=== PATIENT | female | born 1990 | race Caucasian/White ===

== ENCOUNTER 2019-05-30 13:19 | Emergency (ER) | payer MEDICAID, OTHER ==
[~2019-05-30] VITALS: Ht 162.6 cm; Wt 111.6 kg
--- OUTSIDE RECORDS SUMMARY | 2019-05-30 13:27 | XMS REPORT ---
Author Author DESI TAM Organization [employer] Address Unknown Phone Unavailable Care Team Providers Care Sales Mgr Name Role Phone DESI TAM CP Unavailable Allergies, Adverse Reactions, Alerts Substance Reaction Event Type Penicillin G Sodium Info Not Available Drug Allergy Problems Problem Type Condition Code Onset Dates Condition Status Assessment Encounter for dental examination Z01.20 Active Medications No Known Medications Procedures Procedure Coding System Code Date RESIN COMPOS - ONE SURFACE ANTERIOR CPT-4 D2330 Oct 14, 2015 RESIN COMPOS - 2 SURFACES ANTERIOR CPT-4 D2331 Oct 14, 2015 INTRAORL-PERIAPICAL 1 FILM 78792 CPT-4 D0220 Oct 16, 2015 Vital Signs Date/Time: Oct 16, 2015 Blood Pressure Diastolic 73 mmHg Blood Pressure Systolic 113 mmHg Results No Known Results Summary Purpose [employer] Submission
--- OUTSIDE RECORDS SUMMARY | 2019-05-30 13:27 | XMS REPORT ---
Author Author LEW LANG Organization [facility] Address [address] [place] [address] Phone Unavailable Care Team Providers Care Television Station Manager Name Role Phone LEW LANG Unavailable Unavailable PROBLEMS Unknown Problems ALLERGIES Substance Reaction Event Type Date Status Penicillin G Sodium Unknown Drug Allergy Jul, Active ENCOUNTERS Encounter Location Date Diagnosis [facility] [address] [id number] [phone] Jan, Encounter for dental exam and cleaning w/o abnormal findings Z01.20 [facility] [address] [id number], [place] [phone] Dec, Dental examination Z01.20 and Dental caries K02.9 [facility] [place] [address] [id number] [place] [phone] Oct, Dental examination Z01.20 [facility] [address] [id number][place] [phone] Oct, Encounter for dental exam and cleaning w/o abnormal findings Z01.20 [facility] [address] [id number], [place] [phone] Jul, Encounter for dental examination and cleaning with abnormal findings Z01.21 [facility] [address] [id number], [place] [phone] Sep, Encounter for dental examination Z01.20 [facility] [address] [id number], [place] [phone] Jul, Dental examination V72.2 [facility] [address] [id number], [place] [phone] May, Dental examination V72.2 IMMUNIZATIONS No Known Immunizations SOCIAL HISTORY Never Assessed REASON FOR VISIT ADULT OUTREACH [facility] PLAN OF CARE Activity Details Follow Up REMA/, 3 Months Reason:TE #21/ON SITE RECALL VITAL SIGNS MEDICATIONS Medication Instructions Dosage Frequency Start Date End Date Duration Status Ziprasidone HCl 60 MG Orally Twice a day 1 capsule with food 12h Active MiraLax - Orally Once a day 1 packet mixed with 8 ounces of fluid 24h Active Omeprazole 20 MG Orally Once a day 1 capsule 24h Active Acetaminophen 325 MG Orally every 6 hrs 2 tablets as needed 6h Active Cranberry Concentrate 500 MG Active Fluoxetine 20 MG Orally Once a day 1 capsule in the morning 24h Active ibuprofen 1 tab Active Benadryl 50 MG/ML Active Debrox 6.5 % Otic Twice a day 5 drops into affected ear 12h Active Loperamide HCl 2 MG Orally Four times a day 1 tablet as needed 6h Active Ziprasidone HCl 80 MG Orally Twice a day 1 capsule with food 12h Active RESULTS No Results PROCEDURES Procedure Date Ordered Result Body Site PROPHYLAXIS - ADULT Jul 30, 2017 TOPICAL FLUORIDE VARNISH Jul 30, 2017 INSTRUCTIONS MEDICATIONS ADMINISTERED No Known Medications MEDICAL (GENERAL) HISTORY Type Description Date Medical History DEPRESSIVE DISORDER, NEC ANXIETY STATE, NOS RECURRENT UTI .HEARTBURN
--- OUTSIDE RECORDS SUMMARY | 2019-05-30 13:27 | XMS REPORT ---
Author Author RAIZA VALDES [facility] Address [address] [place] [address] Care Team Providers Care Airport Representative Name Role Phone RAIZA VALDES Unavailable PROBLEMS Unknown Problems ALLERGIES Substance Reaction Event Type Date Status Penicillin G Sodium Unknown Drug Allergy Oct, Active ENCOUNTERS Encounter Location Date Diagnosis [facility] [address] [id number], [place] [address] Apr, [facility] [address] [id number] [phone] Apr, [facility] [address] [id number], [place] [phone] Jan, Encounter for dental exam and cleaning w/o abnormal findings Z01.20 [facility] [address] [id number], [place] [phone] Dec, Dental examination Z01.20 and Dental caries K02.9 [facility] [place] [address] [id number] [place] [phone] Oct, Dental examination Z01.20 [facility] [address] [id number], [place] [phone] Oct, Encounter for dental exam and cleaning w/o abnormal findings Z01.20 [facility] [address] [id number], [place] [phone] Jul, Encounter for dental examination and cleaning with abnormal findings Z01.21 [facility] [address] [id number], [place] [phone] Sep, Encounter for dental examination Z01.20 [facility] [address] [id number], [place] [phone] Jul, Dental examination V72.2 [facility] [address] [facility] [id number] [place] [phone] May, Dental examination V72.2 IMMUNIZATIONS No Known Immunizations SOCIAL HISTORY Never Assessed REASON FOR VISIT PLAN OF CARE Activity Details Follow Up REMA Reason:Extraction VITAL SIGNS MEDICATIONS Medication Instructions Dosage Frequency Start Date End Date Duration Status Acetaminophen 325 MG Orally every 6 hrs 2 tablets as needed 6h Active Ziprasidone HCl 80 MG Orally Twice a day 1 capsule with food 12h Active Benadryl 50 MG/ML Active Omeprazole 20 MG Orally Once a day 1 capsule 24h Active Ziprasidone HCl 60 MG Orally Twice a day 1 capsule with food 12h Active Loperamide HCl 2 MG Orally Four times a day 1 tablet as needed 6h Active Cranberry Concentrate 500 MG Active Debrox 6.5 % Otic Twice a day 5 drops into affected ear 12h Active ibuprofen 1 tab Active MiraLax - Orally Once a day 1 packet mixed with 8 ounces of fluid 24h Active Fluoxetine 20 MG Orally Once a day 1 capsule in the morning 24h Active RESULTS No Results PROCEDURES Procedure Date Ordered Result Body Site PERIODIC ORAL EXAMINATION Nov 17, 2017 BITEWINGS - FOUR FILMS Nov 17, 2017 INSTRUCTIONS MEDICATIONS ADMINISTERED No Known Medications MEDICAL (GENERAL) HISTORY Type Description Date Medical History DEPRESSIVE DISORDER, NEC ANXIETY STATE, NOS RECURRENT UTI .HEARTBURN
--- OUTSIDE RECORDS SUMMARY | 2019-05-30 13:27 | XMS REPORT ---
Author Author RAIZA VALDES [facility] [address] Address [address] [place] [address] Care Team Providers Care Business Services Vice President Name Role Phone RAIZA VALDES Unavailable PROBLEMS Unknown Problems ALLERGIES Substance Reaction Event Type Date Status Penicillin G Sodium Unknown Drug Allergy Apr, Active ENCOUNTERS Encounter Location Date Diagnosis [facility] [address] [place] [address] Apr, Dental examination Z01.20 [facility] [id number] [place] [phone] Jan, Encounter for dental exam and cleaning w/o abnormal findings Z01.20 [facility] [id number] [place] [phone] Dec, Dental examination Z01.20 and Dental caries K02.9 [facility] [address] [place] [address] Oct, Dental examination Z01.20 [facility] [id number] [place] [phone] Oct, Encounter for dental exam and cleaning w/o abnormal findings Z01.20 [facility] [id number] [place] [phone] Jul, Encounter for dental examination and cleaning with abnormal findings Z01.21 [facility] [id number] [place] [phone] Sep, Encounter for dental examination Z01.20 [facility] [id number] [place] [id number] Jul, Dental examination V72.2 [facility] [address] [id number] [place] [phone] May, Dental examination V72.2 IMMUNIZATIONS No Known Immunizations SOCIAL HISTORY Never Assessed REASON FOR VISIT Adult Outreach [facility] PLAN OF CARE Activity Details Follow Up 3 Months Reason:on site recall VITAL SIGNS MEDICATIONS Medication Instructions Dosage Frequency Start Date End Date Duration Status Loperamide HCl 2 MG Orally Four times a day 1 tablet as needed 6h Active Debrox 6.5 % Otic Twice a day 5 drops into affected ear 12h Active Fluoxetine 20 MG Orally Once a day 1 capsule in the morning 24h Active Ziprasidone HCl 80 MG Orally Twice a day 1 capsule with food 12h Active ibuprofen 1 tab Active Cranberry Concentrate 500 MG Active MiraLax - Orally Once a day 1 packet mixed with 8 ounces of fluid 24h Active Ziprasidone HCl 60 MG Orally Twice a day 1 capsule with food 12h Active Omeprazole 20 MG Orally Once a day 1 capsule 24h Active Benadryl 50 MG/ML Active Acetaminophen 325 MG Orally every 6 hrs 2 tablets as needed 6h Active RESULTS No Results PROCEDURES Procedure Date Ordered Result Body Site PERIODIC ORAL EXAMINATION May 25, 2018 PROPHYLAXIS - ADULT May 25, 2018 INSTRUCTIONS MEDICATIONS ADMINISTERED No Known Medications MEDICAL (GENERAL) HISTORY Type Description Date Medical History DEPRESSIVE DISORDER, NEC ANXIETY STATE, NOS RECURRENT UTI .HEARTBURN
--- OUTSIDE RECORDS SUMMARY | 2019-05-30 13:27 | XMS REPORT ---
Author Author DESI TAM Organization [employer] Address Unknown Phone Unavailable Care Team Providers Care Metal Miner Blasting Name Role Phone DESI TAM CP Unavailable Allergies No Known Allergies Problems Problem Type Condition ICD-9 Code Onset Dates Condition Status Assessment Dental examination V72.2 Active Medications No Known Medications Procedures Procedure Coding System Code Date PULP CAP - DIRECT CPT-4 D3110 Aug 06, 2015 Billing Notes on claim CPT-4 EC109 Aug 06, 2015 AMALGAM-TWO SURFACES PRIMARY/PERM CPT-4 D2150 Aug 06, 2015 Results No Known Results Summary Purpose e[employer]Works Submission
--- OUTSIDE RECORDS SUMMARY | 2019-05-30 13:27 | XMS REPORT ---
Author Author LEW LANG [facility] Address [address] [place] [address] Phone Unavailable Care Team Providers Care Remote Control Assembler Name Role Phone LEW LANG Unavailable Unavailable PROBLEMS Unknown Problems ALLERGIES Substance Reaction Event Type Date Status Penicillin G Sodium Unknown Drug Allergy Jan, Active ENCOUNTERS Encounter Location Date Diagnosis [facility] [place] [address] [place] [address] Apr, Dental examination Z01.20 [facility] [address] [id number] [place] [phone] Jan, Encounter for dental exam and cleaning w/o abnormal findings Z01.20 [facility] [address] [id number] [place] [phone] Dec, Dental examination Z01.20 and Dental caries K02.9 [facility] [place] [address] [place] [address] Oct, Dental examination Z01.20 [facility] [address] [id number] [place] [phone] Oct, Encounter for dental exam and cleaning w/o abnormal findings Z01.20 [facility] [id number] [place] [phone] Jul, Encounter for dental examination and cleaning with abnormal findings Z01.21 [facility] [address] [id number] [place] [phone] Sep, Encounter for dental examination Z01.20 [facility] [address] [id number] [place] [phone] Jul, Dental examination V72.2 [facility] [address] [id number] [phone] May, Dental examination V72.2 IMMUNIZATIONS No Known Immunizations SOCIAL HISTORY Never Assessed REASON FOR VISIT ADULT OUTREACH [facility] PLAN OF CARE Activity Details Follow Up 3 Months Reason:ON SITE RECALL VITAL SIGNS MEDICATIONS Medication Instructions Dosage Frequency Start Date End Date Duration Status Loperamide HCl 2 MG Orally Four times a day 1 tablet as needed 6h Active ibuprofen 1 tab Active Cranberry Concentrate 500 MG Active Acetaminophen 325 MG Orally every 6 hrs 2 tablets as needed 6h Active Benadryl 50 MG/ML Active Fluoxetine 20 MG Orally Once a day 1 capsule in the morning 24h Active Omeprazole 20 MG Orally Once a day 1 capsule 24h Active MiraLax - Orally Once a day 1 packet mixed with 8 ounces of fluid 24h Active Debrox 6.5 % Otic Twice a day 5 drops into affected ear 12h Active Ziprasidone HCl 60 MG Orally Twice a day 1 capsule with food 12h Active Ziprasidone HCl 80 MG Orally Twice a day 1 capsule with food 12h Active RESULTS No Results PROCEDURES Procedure Date Ordered Result Body Site PROPHYLAXIS - ADULT February 16, 2018 TOPICAL FLUORIDE VARNISH February 16, 2018 INSTRUCTIONS MEDICATIONS ADMINISTERED No Known Medications MEDICAL (GENERAL) HISTORY Type Description Date Medical History DEPRESSIVE DISORDER, NEC ANXIETY STATE, NOS RECURRENT UTI .HEARTBURN
--- OUTSIDE RECORDS SUMMARY | 2019-05-30 13:27 | XMS REPORT | Continuity of Care Document ---
Author Organization Unknown Address Unknown Allergies There is no data. Medications There is no data. Problems There is no data. Procedures There is no data. Results There is no data. Encounters ACCT No. Visit Date/Time Discharge Status Pt. Type Provider Facility Loc./Unit Complaint [id number] 05/29/2019 13:40:00 ACT Outpatient EFRAÍN [facility]OW [facility]
--- OUTSIDE RECORDS SUMMARY | 2019-05-30 13:27 | XMS REPORT ---
Author Author LEW LANG [facility] Address [address] [place] [address] Phone Unavailable Care Team Providers Care Manager Front Office Name Role Phone LEW LANG Unavailable Unavailable PROBLEMS Unknown Problems ALLERGIES Substance Reaction Event Type Date Status Penicillin G Sodium Unknown Drug Allergy Oct, Active ENCOUNTERS Encounter Location Date Diagnosis [facility] [address] [facility] [id number] [place] [address] Apr, [facility] [address] [id number][place] [phone] Apr, [facility] [address] [id number] [place] [phone] Jan, Encounter for dental exam and cleaning w/o abnormal findings Z01.20 [facility] [address] [id number] [place] [phone] Dec, Dental examination Z01.20 and Dental caries K02.9 [facility] [place] [address] [id number] [place] [phone] Oct, Dental examination Z01.20 [facility] [address] [id number] [place] [phone] Oct, Encounter for dental exam and cleaning w/o abnormal findings Z01.20 [facility] [address] [id number] [place] [phone] Jul, Encounter for dental examination and cleaning with abnormal findings Z01.21 [facility] [address] [id number] [place] [phone] Sep, Encounter for dental examination Z01.20 [facility] [address] [id number] [place] [phone] Jul, Dental examination V72.2 [facility] [id number] [place] [phone] May, Dental examination V72.2 IMMUNIZATIONS No Known Immunizations SOCIAL HISTORY Never Assessed REASON FOR VISIT ADULT OUTREACH [facility] PLAN OF CARE Activity Details Follow Up SITE STAFF WILL CALL Reason:[place] VITAL SIGNS MEDICATIONS Medication Instructions Dosage Frequency Start Date End Date Duration Status Cranberry Concentrate 500 MG Active Loperamide HCl 2 MG Orally Four times a day 1 tablet as needed 6h Active Acetaminophen 325 MG Orally every 6 hrs 2 tablets as needed 6h Active Fluoxetine 20 MG Orally Once a day 1 capsule in the morning 24h Active Ziprasidone HCl 80 MG Orally Twice a day 1 capsule with food 12h Active ibuprofen 1 tab Active Ziprasidone HCl 60 MG Orally Twice a day 1 capsule with food 12h Active Omeprazole 20 MG Orally Once a day 1 capsule 24h Active Benadryl 50 MG/ML Active MiraLax - Orally Once a day 1 packet mixed with 8 ounces of fluid 24h Active Debrox 6.5 % Otic Twice a day 5 drops into affected ear 12h Active RESULTS No Results PROCEDURES Procedure Date Ordered Result Body Site PROPHYLAXIS - ADULT Nov 17, 2017 INSTRUCTIONS MEDICATIONS ADMINISTERED No Known Medications MEDICAL (GENERAL) HISTORY Type Description Date Medical History DEPRESSIVE DISORDER, NEC ANXIETY STATE, NOS RECURRENT UTI .HEARTBURN
[2019-05-30] MEDS ORDERED: RABIES VACCINE HUMAN DIPL CELL 1 ML/2.5 UNITS SYR IM ONE (14:30)
[2019-05-30] MEDS ORDERED: RABIES IMMUNE GLOBULIN 300 UNIT/ML 5 ML (HyperRAB) IM ONE (14:30)
[2019-05-30] MEDS ORDERED: L.E.T. SYRINGE 5 ML ONE (15:03)
--- NOTE | 2019-05-30 15:43 | ED Integumentary General ---
General Chief Complaint: Bite-Animal/Human/Insect Stated Complaint: DOG BITE Nursing Triage Note: Was bitten by a dog 3 days ago on the right leg. Was seen in doctors office yesterday by PCP Efraín Sow and was given tetanus shot. Is being set up for outpatient rabies vaccine through the office but has to have first dose in ED so was sent here. Source: patient, old records, caregiver Exam Limitations: no limitations History of Present Illness Date Seen by Provider: May 30, 2019 Time Seen by Provider: 14:10 Initial Comments Patient brought to the ED to start her Rabies treatment. Was reportedly bitten by an unknown dog 3 days ago and was seen in the [facility] clinic yesterday who arranged for her to start outpatient Rabies injections today, but apparently the first treatment has to be given here in the ED. Timing/Duration: other (3 days ago) Location: extremities (RLE) Possible Cause: other (dog bite) Associated Symptoms: denies symptoms Allergies and Home Medications Allergies Coded Allergies: Penicillins (Verified Allergy, Unknown, 05/30/19) Patient Home Medication List Home Medication List Reviewed: Yes Review of Systems Review of Systems Constitutional: see HPI : No Skin: see HPI, other (dog bite wound RLE) All Other Systems Reviewed Negative Unless Noted: Yes (Negative excepted noted.) Past Rsqxqme-Djwzmj-Elzemw Hx Patient Social History Alcohol Use: Denies Use Recreational Drug Use: No Smoking Status: Never a Smoker 2nd Hand Smoke Exposure: No Recent Foreign Travel: No Contact w/Someone Who Travel: No Recent Infectious Disease Expo: No Recent Hopitalizations: No Physical Abuse: No Sexual Abuse: No Mistreated: No Fear: No Seasonal Allergies Seasonal Allergies: No Past Medical History Surgeries: No Respiratory: No Cardiac: No Neurological: Yes Developmental Disorder Genitourinary: No Gastrointestinal: Yes Gastroesophageal Reflux Musculoskeletal: No Endocrine: No HEENT: No Cancer: No Psychosocial: Yes Depression Integumentary: No Blood Disorders: No Adverse Reaction/Blood Tranf: No Physical Exam Vital Signs Vital Signs - First Documented 05/30/19 14:03 Temp 98.5 Pulse 102 Resp 18 B/P (MAP) 118/75 (89) Pulse Ox 97 Capillary Refill : Less Than 3 Seconds General Appearance: WD/WN, no apparent distress, obese Respiratory: no respiratory distress Neurologic/Psychiatric: no motor/sensory deficits, alert, normal mood/affect Skin: warm/dry Skin Problem Location: lower extremities (right ) Skin Problem Character: other (dry scabbed wound c/w a dog bite; no evidence of infection @ this time. Minimally tender to palpation) Progress/Results/Core Measures Results/Orders My Orders Orders - CHANDRIKA SIU DO Rabies Vaccine Human Dipl Cell (Rabavert (05/30/19 14:30) Rabies Immune Globulin/Pf Inj (Hyperrab (05/30/19 14:30) Let Solution (Let Solution) (05/30/19 15:03) Let Solution (Let Solution) (05/30/19 15:45) Medications Given in ED Current Medications Medications Dose Ordered Sig/Diego Route Start Time Stop Time Status Last Admin Dose Admin Rabies Immune Globulin 2,240 unit ONCE ONCE IM 05/30/19 14:30 05/30/19 14:37 DC 05/30/19 15:24 2,240 UNIT Rabies Vaccine Human Diploid Cell 1 ml ONCE ONCE IM 05/30/19 14:30 05/30/19 14:37 DC 05/30/19 15:22 1 ML Tetracaine/ Epinephrine/ Lidocaine 1 ea ONCE ONCE TOP 05/30/19 15:45 05/30/19 15:46 DC 05/30/19 15:57 1 EA Vital Signs/I&O 05/30/19 05/30/19 14:03 15:57 Temp 98.5 99.0 Pulse 102 99 Resp 18 16 B/P (MAP) 118/75 (89) 120/71 (87) Pulse Ox 97 96 Blood Pressure Mean: 89 Progress Progress Note : Progress Note Rabies series was started by the ED RN per protocol. Departure Impression Primary Impression: Dog bite Additional Impression: Rabies, need for prophylactic vaccination against Disposition: HOME, SELF-CARE Condition: Stable Departure-Patient Inst. Decision time for Depature: 15:43 Referrals: [facility] (PCP) Primary Care Physician EFRAÍN SOW APRN (Family) Primary Care Physician Patient Instructions: Animal Bites (DC) CHANDRIKA SIU DO May 30, 2019 15:43
[2019-05-30] MEDS ORDERED: L.E.T. SYRINGE 5 ML TOP ONE (15:45)
[2019-05-30 15:57] VITALS: BP 120/71
== END 2019-05-30 16:07 | disposition home or self-care (01) ==
LOC: ER FS 13:23
DX: S81.851A Open bite, right lower leg, initial encounter (principal); K21.9 Gastro-esophageal reflux disease without esophagitis; F32.9 Major depressive disorder, single episode, unspecified; F81.9 Developmental disorder of scholastic skills, unspecified; Z29.14 Encounter for prophylactic rabies immune globulin; Z88.0 Allergy status to penicillin; W54.0XXA Bitten by dog, initial encounter
CPT/HCPCS: 90375; 90675; 99284

== ENCOUNTER 2019-06-20 20:39 | Outpatient (CLI) | payer MEDICAID | END 2019-06-21 07:06 | disposition home or self-care (01) | LOC: SLEEP 20:39 | PROVIDERS: ATTEND Nurse Practitioner Family | DX: G47.33 Obstructive sleep apnea (adult) (pediatric) (principal); I10 Essential (primary) hypertension; R53.83 Other fatigue | CPT/HCPCS: 95811 ==

== ENCOUNTER 2022-03-23 10:21 | Emergency (ER) | payer MEDICAID ==
[~2022-03-23] VITALS: Ht 180 cm; Wt 100.0 kg
[2022-03-23 10:34] VITALS: BP 148/100
--- NOTE | 2022-03-23 10:34 | ED Upper Extremity ---
General Chief Complaint: Upper Extremity Stated Complaint: LEFT WRIST INJ Source: patient History of Present Illness Date Seen by Provider: Mar 23, 2022 Time Seen by Provider: 10:28 Initial Comments 31-year-old female presents with complaints of pain in her left wrist. She is a [facility] resident but works at [employer]. She was on a chair last night tr shyann to get something that was higher up. As she was getting down off the chair she fell and landed on her side with her left hand underneath her. She did not hit her head or lose consciousness. She has been able to walk without difficulty. She does have increased pain with movement of her left hand and use of her fingers of the left hand. She denies any numbness or weakness. She has not taken anything for pain. She was wanting a note so she can go to work at [employer] today. She works with cleaning tables and passing food. She is right-hand dominant. Onset: yesterday Severity: moderate Pain/Injury Location: left wrist Method of Injury: fell Modifying Factors: Worse With Movement Allergies and Home Medications Allergies Coded Allergies: Penicillins (Verified Allergy, Unknown, 05/30/19) Patient Home Medication List Home Medication List Reviewed: Yes Review of Systems Constitutional: No chills, No fever EENTM: no symptoms reported Respiratory: no symptoms reported Cardiovascular: no symptoms reported Gastrointestinal: no symptoms reported Genitourinary: no symptoms reported Musculoskeletal: see HPI Skin: No change in color (No bruising or abrasions noted) Psychiatric/Neurological: Denies Numbness, Denies Paresthesia, Denies Weakness Past Nslqiaj-[id number]-[id number] Hx Patient Social History Tobacco Use?: Yes Use of E-Cig and/or Vaping dev: No Substance use?: No Alcohol Use?: No Seasonal Allergies Seasonal Allergies: No Past Medical History Surgeries: No Respiratory: No Cardiac: No Neurological: Yes Developmental Disorder Genitourinary: No Gastrointestinal: Yes Gastroesophageal Reflux Musculoskeletal: No Endocrine: No HEENT: No Cancer: No Psychosocial: Yes Depression Integumentary: No Blood Disorders: No Adverse Reaction/Blood Tranf: No Physical Exam Vital Signs Vital Signs - First Documented 03/23/22 10:34 Temp 36.4 Pulse 73 Resp 16 B/P (MAP) 148/100 (116) Pulse Ox 98 O2 Delivery Room Air Capillary Refill : Height, Weight, BMI Height: 5'4.00" Weight: 230lbs. 0.0oz. [id number]; BMI Method:Stated General Appearance: WD/WN, no apparent distress HEENT: PERRL/EOMI Neck: non-tender, full range of motion, supple, normal inspection Cardiovascular: normal peripheral pulses Shoulder: normal inspection, non-tender, no evidence of injury, normal ROM Elbow/Forearm: normal inspection, non-tender, no evidence of injury, normal ROM Wrist: Yes pain (Increased pain to the left wrist with movement and palpation. No pain over the anatomic snuffbox. No deformity or ecchymosis) Hand: normal inspection, non-tender, no evidence of injury, normal ROM Neurologic/Tendon: normal sensation, normal motor functions, normal tendon functions Neurologic/Psychiatric: emergency management coordinator II-XII nml as tested, no motor/sensory deficits, alert, normal mood/affect, oriented x 3 Skin: normal color, warm/dry Progress/Results/Core Measures Results/Orders My Orders Orders - CASSIE HOLLINS MD Ibuprofen Tablet (Motrin Tablet) (03/23/22 10:40) Wrist 3 View Left (03/23/22 10:40) Wrist-[place] (03/23/22 10:56) Vital Signs/I&O 03/23/22 10:34 Temp 36.4 Pulse 73 Resp 16 B/P (MAP) 148/100 (116) Pulse Ox 98 O2 Delivery Room Air Progress Progress Note #1: Progress Note Ordered ibuprofen for pain and inflammation. Ice pack for pain and swelling. X -rays of the left wrist to evaluate for possible acute fracture or dislocation. Progress Note #2: Progress Note X-rays did not demonstrate any acute fracture or dislocation. Will treat with a wrist splint and have her follow-up with clinic if not improving within the next 7 to 10 days. Use ibuprofen on a scheduled basis for the next 5 days and then as needed after that. Continue with ice 15 to 20 minutes every 6-8 hours. May return to work but needs to wear splint while at work. Diagnostic Imaging Diagonstic Imaging: Xray Plain Films/CT/US/NM/MRI: other (wrist) Comments [facility]. [place], [place] NAME: TIM MAURO [facility] REC#: [id number] PT STATUS: REG ER : 1990 PHYSICIAN: CASSIE HOLLINS MD ADMIT DATE: 03/23/22/ER FS Draft Date of Exam:03/23/22 WRIST 3 VIEW LEFT INDICATION: Fall with left wrist pain. TECHNIQUE: AP, oblique, and lateral views of the left wrist are obtained. FINDINGS: No fracture or acute bony abnormality is seen. Joint spaces appear unremarkable. IMPRESSION: Negative for acute abnormality. Dictated on workstation # [id number] Dict: 03/23/22 1048 Trans: 03/23/22 1051 [id number] Interpreted by: MARIANA GARNER MD Electronically signed by: Reviewed: Reviewed by Me Departure Impression Primary Impression: Contusion of left wrist, initial encounter Additional Impressions: Unspecified sprain of left wrist, initial encounter Fall from chair, initial encounter Disposition: 01 HOME, SELF-CARE Condition: Stable Departure-Patient Inst. Decision time for Depature: 11:10 Referrals: EFRAÍN SOW APRN (PCP) Primary Care Physician [facility] (Family) Primary Care Physician Patient Instructions: Minor Contusion ED, Common Wrist Injuries ED, Using Cold for Pain, Wrist Sprain ED Add. Discharge Instructions: Keep wrist splint clean and dry. Wear the wrist splint at all times except for when you are washing your hands or taking a shower. You may use ice pack to help with swelling and pain. Apply ice for 15 to 20 minutes 3-4 times a day as needed for pain and swelling. For the next 5 days make sure that you are taking the ibuprofen for inflammation and pain every 8 hours. After the next 5 days you could just take the ibuprofen as needed if you are having pain. If your pain and symptoms are not improved within the next 7 to 10 days then check back with clinic as they may need to repeat xrays or order physical therapy to help your wrist heal. All discharge instructions reviewed with patient and/or family. Voiced understanding. Work/School Note: Work Release Form Date Seen in the Emergency Department: Mar 23, 2022 Return to Work: Mar 23, 2022 Other Restrictions Listed Below: Use wrist splint for next 10 days CASSIE HOLLINS MD Mar 23, 2022 10:34
[2022-03-23] MEDS ORDERED: IBUPROFEN 800 MG (MOTRIN) TAB PO STA (10:40)
--- NOTE | 2022-03-23 10:51 | Diagnostic Imaging Report ---
INDICATION: Fall with left wrist pain. TECHNIQUE: AP, oblique, and lateral views of the left wrist are obtained. FINDINGS: No fracture or acute bony abnormality is seen. Joint spaces appear unremarkable. IMPRESSION: Negative for acute abnormality. Dictated by: Dictated on workstation # [id number]
== END 2022-03-23 11:26 | disposition home or self-care (01) ==
LOC: EDUNIT# 10:21 → ER FS 10:25
DX: S63.502A Unspecified sprain of left wrist, initial encounter (principal); W07.XXXA Fall from chair, initial encounter
CPT/HCPCS: 73110